=== PATIENT | male | born 1995 | race African-American/Black ===

== ENCOUNTER 2018-08-02 12:35 | Day surgery (SDC) | payer OTHER ==
[~2018-08-02 12:35] MED LIST: ACETAMINOPHEN 1,000 MG/100 ML RTUPB IV ONE; CEFAZOLIN 2 GM/D5W RTU 2 GM/50 ML RTUPB IV PRN; CLINDAMYCIN 600 MG/D5W RTU 600 MG/50 ML RTUPB IV PRN; FENTANYL CITRATE INJ/PF 100 MCG/2 ML AMPUL ONE; LIDOCAINE 1% INJ-PF (10 MG/ML) 30 ML SDV ONE; MIDAZOLAM 2 MG/2 ML INJ ONE; PROPOFOL INJ 200 MG/20 ML VIAL IV ONE
[2018-08-02] MEDS ORDERED: CLINDAMYCIN 600 MG/D5W RTU 600 MG/50 ML RTUPB IV ONE (12:44)
[2018-08-02] MEDS ORDERED: LIDOCAINE 1%/EPINEPHRINE INJ 20 ML VIAL ONE (13:45)
[2018-08-02 13:55] LABS: ANION GAP 13 (5-19); BLOOD UREA NITROGEN 14 mg/dL (7-20); CALCIUM 10.3 mg/dL (8.4-10.2); CARBON DIOXIDE 29 mmol/L (22-30); CHLORIDE 100 mmol/L (98-107); GLUCOSE 94 mg/dL (75-110); POTASSIUM 3.9 mmol/L (3.6-5.0); SODIUM 141.8 mmol/L (137-145)
[2018-08-02] MEDS ORDERED: DIPHENHYDRAMINE HCL 50 MG/ML VIAL IV PRN (14:15)
[2018-08-02] MEDS ORDERED: FENTANYL CITRATE INJ/PF 100 MCG/2 ML AMPUL IV PRN ×3 (14:15)
[2018-08-02] MEDS ORDERED: MORPHINE SULFATE 10 MG/ML INJ IV PRN ×2 (14:15→15:22)
[2018-08-02] MEDS ORDERED: ONDANSETRON HCL INJ/PF 4 MG/2 ML SDV IV PRN ×2 (14:15→15:22)
[2018-08-02] MEDS ORDERED: MEPERIDINE HCL/PF INJ 25 MG/1 ML DISP.SYRIN IV PRN (14:15)
[2018-08-02] MEDS ORDERED: PROMETHAZINE HCL INJ 25 MG/1 ML VIAL IV PRN ×2 (14:15)
--- NOTE | 2018-08-02 15:30 | Operative Report ---
Operative Report DATE OF SURGERY: 08/02/18 PREOPERATIVE DIAGNOSIS: Left thumb FPL zone II laceration POSTOPERATIVE DIAGNOSIS: Same OPERATION: Left thumb FPL zone II repair SURGEON: TRACI VALLADARES ANESTHESIA: LMAC COMPLICATIONS: None ESTIMATED BLOOD LOSS: Minimal PROCEDURE: Indication for above procedure:: 23-year-old male who was at work when he cut his hand grabbing a bag of garbage. He was unable to bend his finger at that time patient was seen in the emergency room and diagnosed with flexor tendon laceration. Patient followed up in the office which point we discussed treatment options including operative versus nonoperative intervention after discussing risks and benefits joint decision was made to proceed with operative treatment. Procedure In Detail: Patient was seen and evaluated in the preoperative holding area. The LEFT upper extremity was initialized and marked. Patient received clindamycin IV for bacterial prophylaxis. In the preoperative holding area the operative digit and laterality were confirmed and 10 cc of 1% lidocaine with epinephrine was injected at the level of the thenar eminence. Patient was taken back to the operative room where transferred to the operative table. Once they were adequately anesthetized a nonsterile tourniquet was placed on the upper extremity. A surgical team debriefing was performed ensuring all instrumentation was available, the surgical procedure was discussed with possible concerns reviewed. A digital block was performed utilizing additional 5 cc of 1% lidocaine with epinephrine. The upper extremity was prepped with chlorhexidine and alcohol and draped in a sterile fashion. A timeout was done identifying correct patient, procedure and extremity everyone in attendance agree with this and verbalized no concerns. Patient's laceration was extended distally midline then proximally just proximal to the MCP joint flexion crease. Radial and ulnar neurovascular bundles were identified and intact. The distal aspect of the remnant FPL was identified. Proximal tendon of the FPL was also identified and carefully avoiding over manipulation of the tendon edges. It was then tunneled through the oblique linda. The tendon was then held into position with a 25 and 22-gauge needle. Tendon was repaired at zone II with a 4-0 fiber loop utilizing a cross cruciate 8 stranded repair obtaining 7 mm of fixation distally and 10 mm of fixation proximally. Patient was then asked to flex and extend the FPL there is no evidence of repair impingement along the oblique linda patient full flexion/extension. No gapping of the tendon edges with active flexion. Epitendinous repair was then performed with a running 6-0 Prolene suture. Wound was then copiously irrigated with normal saline. A peripheral veins were controlled with bipolar cautery. Skin was closed with 4-0 and 3-0 nylon suture. Wound was dressed Xeroform 4 x 4's and patient was placed in a thumb spica splint with the wrist at neutral position MP joint at 40 degrees of flexion and IP joint at neutral. Postoperative plan: Patient will follow-up as scheduled for wound check. Patient will begin occupational therapy as per [place]'s protocol [facility] zone II
--- NOTE | 2018-08-02 15:30 | Discharge Summary ---
Discharge Summary (SDC) - Discharge Final Diagnosis: Left thumb at zone II FPL laceration Date of Surgery: 08/02/18 Discharge Date: 08/02/18 Condition: Good Treatment or Instructions: Schedule Follow Up w/ Dr. Matt Oneill @ [facility] for Surgery to be seen in 10-14 days or as scheduled [place]: [place]: [place]: Ice and elevate Keep splint clean/dry/intact. If your fingers become numb please unwrap the Abel wrap but leave the splint in place, if the sensation does not return within 30 minutes please return to the emergency department. May begin finger range of motion attempting to make full fist, excluding the thumb Please use ibuprofen (Motrin or Advil) 600-800 mg every 8 hours as needed for pain or fever DO NOT TAKE w/ TORADOL may use once TORADOL complete. You may also use acetaminophen (Tylenol) 1000 mg every 4-6 hours as needed for pain or fever. Please be aware that many medications contain acetaminophen, do not exceed a total of 1000 mg of acetaminophen every 6 hours. If ibuprofen and acetaminophen are not sufficient for your pain you may take the Percocet/[place]. Please be aware that the Percocet/[place] does contain Tylenol. Stool softener of choice when on pain medication. USE OF [id number] IBUPROFEN: Ibuprofen (Advil, Nuprin, Medipren, Motrin IB) is a medication for fever and pain control. In addition, it has anti- inflammatory effects which may be beneficial, especially in the treatment of injuries. It's best to take ibuprofen with food. Persons with ulcer disease or allergy to aspirin should notify their physician of this before taking ibuprofen. Ibuprofen can be given every four to six hours, for a total of four doses daily. Age Pain or fever dose Antiinflammatory dose 6-8 yr 200 mg (1 tab) 200 mg (1 tab) 9-11 yr 200 mg (1 tab) 200-400 mg (1-2 tab) 11-14 yr 200-400 mg (1-2 tab) 400 mg (2 tab) 15-adult 400 mg (2 tab) 600 mg (3 tab) ORAL NARCOTIC MEDICATION: You have been given a prescription for pain control. This medication is a narcotic. It's best taken with food, as nausea can result if taken on an empty stomach. Don't operate machinery or drive within six hours of taking this medication. Do not combine this medicine with alcohol, or with any medication which can cause sedation (such as cold tablets or sleeping pills) unless you get permission from the physician. Narcotics tend to cause constipation. If possible, drink plenty of fluids and eat a diet high in fiber and fruits. Please be aware that prescription narcotics also have the potential for abuse. People become addicted to these medications because of the general sense of wellbeing that they induce. This feeling along with a significant reduction in tension, anxiety, and aggression provides a stimulating seductive quality to these drugs. Once your pain is under control, we encourage you to discard your unused narcotics. Prescriptions: Ketorolac Tromethamine [Toradol 10 mg Tablet] 10 mg PO Q8HP PRN #12 tablet PRN Reason: Oxycodone HCl/Acetaminophen [Percocet 5-325 mg Tablet] 1 tab PO Q6 PRN #25 tab PRN Reason: Discharge Diet: As Tolerated Respiratory Treatments at Home: Deep Breathing/Coughing, Incentive Spirometer Discharge Activity: No Lifting Over 10 Pounds, No Lifting/Push/Pulling Report the Following to Your Physician Immediately: Redness, Swelling, Warmth, Increased Soreness
[2018-08-02 17:02] VITALS: BP 142/81
--- NOTE | 2018-08-02 21:56 | EKG REPORT ---
SEVERITY:- NORMAL ECG - SINUS RHYTHM ST ELEV, PROBABLE NORMAL EARLY REPOL PATTERN : Confirmed by: Nicola Sanchez 02-Aug-2018 21:56:11
== END 2018-08-02 16:55 | disposition home or self-care (01) ==
LOC: OROUT 12:35
PROVIDERS: ATTEND Orthopaedic Surgery
DX: S66.022A Laceration of long flexor muscle, fascia and tendon of left thumb at wrist and hand level, initial encounter (principal); S61.012A Laceration without foreign body of left thumb without damage to nail, initial encounter; W26.8XXA Contact with other sharp object(s), not elsewhere classified, initial encounter; Y92.69 Other specified industrial and construction area as the place of occurrence of the external cause; Y99.0 Civilian activity done for income or pay; I10 Essential (primary) hypertension; Z79.899 Other long term (current) drug therapy
CPT/HCPCS: 36415; 80048; 93005; 93010; 26356; J2250; J3490; J2704; J0131; 1810; J3010